=== PATIENT | female | born 1945 | race Caucasian/White ===

== ENCOUNTER → 2020-11-20 | Outpatient (CLI) | payer OTHER ==
[~2020-11-20] MED LIST: BENA20 PO; HYDCHL12.5 PO; RISE5 PO; ROSU10TA PO; Simvastatin20 MG PO
== END | disposition home or self-care (01) ==
LOC: LAB SHORT 14:47 → PLD 14:47
DX: N39.0 Urinary tract infection, site not specified (principal)
CPT/HCPCS: 87077; 87086; 87186

== ENCOUNTER → 2020-12-01 | Outpatient (CLI) | payer OTHER | LOC: LAB SHORT 09:30 → PLD 09:30 | DX: N39.0 Urinary tract infection, site not specified (principal) | CPT/HCPCS: 87086 ==